=== PATIENT | female | born 2000 | race Caucasian/White ===

== ENCOUNTER 2019-10-08 17:09 | Emergency (ER) | payer OTHER ==
[~2019-10-08] VITALS: Ht 160 cm; Wt 49.5 kg
[2019-10-08 17:14] VITALS: BP 112/74
[2019-10-08] MEDS ORDERED: KETOROLAC 30 MG/ML VIAL IM ONE (17:25)
--- NOTE | 2019-10-08 17:38 | NUR ---
TORADOL HELD DUE TO + HCG, ABILIO SOUSA NOTIFIED
--- NOTE | 2019-10-08 17:40 | NUR ---
C/O R FLANK PAIN AND DYSURIA OFF & ON X1 MONTH. DENIES VAGINAL D/C, ODOR, BLEEDING ETC. DENIES FEVER, ABD PAIN.
[2019-10-08 17:56] VITALS: BP 112/74
[2019-10-08 18:29] LABS: APPEARANCE,URINE CLEAR (CLEAR); BILIRUBIN,URINE NEGATIVE (NEGATIVE); BLOOD, URINE NEGATIVE (NEGATIVE); LEUKOCYTE ESTERASE ,URINE NEGATIVE (NEGATIVE); NITRITE, URINE NEGATIVE (NEGATIVE); UGLUCOSE NEGATIVE (NEGATIVE)
[2019-10-08 21:11] LABS: COLOR,URINE STRAW (YELLOW)
== END 2019-10-08 17:57 | disposition home or self-care (01) ==
LOC: MED 17:09
DX: M54.5 Low back pain (principal); R30.0 Dysuria; R35.0 Frequency of micturition
CPT/HCPCS: 81003; 81025; 87086; 99283; J1885

== ENCOUNTER 2021-07-24 11:08 | Observation (INO) | payer OTHER ==
[~2021-07-24] VITALS: Ht 157.5 cm; Wt 51.3 kg
[2021-07-24 11:14] VITALS: BP 110/70
[2021-07-24] MEDS ORDERED: NACL 0.9% 1,000 ML IV ONE ×2 (12:40)
[2021-07-24] MEDS ORDERED: KETOROLAC 30 MG/ML VIAL IVP ONE (12:40)
[2021-07-24] MEDS ORDERED: ACETAMINOPHEN EXTRA STRENGTH 500 MG TAB PO ONE (12:40)
[2021-07-24 13:42] LABS: BASOPHILS % (AUTO) 0.2 % (0.0-2.0); EOSINOPHILS % (AUTO) 0.2 % (0.0-4.0); HEMATOCRIT 36.8 % (36-48); HEMOGLOBIN 12.2 g/dL (12.0-16.0); LYMPHOCYTES # (AUTO) 1.1 K/uL (2.5-16.5); LYMPHOCYTES % (AUTO) 9.1 % (20.5-51.1); MEAN CORPUSCULAR HEMOGLOBIN 30 pg (27-31); MEAN CORPUSCULAR HGB CONC 33 g/dL (33-37); MONOCYTES # (AUTO) 0.8 K/uL (0.8-1.0); MONOCYTES % (AUTO) 6.3 % (1.7-9.3); NEUTROPHILS # (AUTO) 10.1 K/uL (1.8-7.7); NEUTROPHILS % (AUTO) 84.2 % (42.2-75.2); PLATELET COUNT (AUTO) 354 K/uL (140-450); RED BLOOD CELL COUNT(AUTO) 4.13 MIL/uL (4.20-5.40); RED CELL DISTRIBUTION WIDTH 13.5 % (11.6-13.7)
[2021-07-24 14:15] LABS: ANION GAP 12.5 (8-16); CARBON DIOXIDE 24.2 mmol/L (21-32); CREATININE 0.7 mg/dL (0.6-1.3); POTASSIUM 3.7 mmol/L (3.5-5.1); TOTAL BILIRUBIN 0.4 mg/dL (0.0-1.0)
[2021-07-24] MEDS ORDERED: KETOROLAC 30 MG/ML VIAL ONE (14:50)
[2021-07-24] MEDS ORDERED: cefTRIAXone 1,000 MG VIAL ONE (14:52)
[2021-07-24 16:23] LABS: APPEARANCE,URINE CLEAR (CLEAR); BILIRUBIN,URINE NEGATIVE (NEGATIVE); BLOOD, URINE 3+ (NEGATIVE); COLOR,URINE YELLOW (YELLOW); LEUKOCYTE ESTERASE ,URINE NEGATIVE (NEGATIVE); NITRITE, URINE NEGATIVE (NEGATIVE); UGLUCOSE NEGATIVE (NEGATIVE)
[2021-07-24 16:27] LABS: WBC,URINE 0-5 /HPF (0-5)
[2021-07-24] MEDS ORDERED: MORPHINE SULFATE 2 MG/ML SYR IVP PRN (16:35)
[2021-07-24] MEDS ORDERED: ONDANSETRON 4 MG/2 ML VIAL IVP PRN (16:35)
[2021-07-24] MEDS: NACL 0.9% 1,000 ML IV SCH ×2 (17:00→17:01)
[2021-07-24] MEDS: ACETAMINOPHEN 325 MG TAB PO PRN (22:50)
[2021-07-25] MEDS: NACL 0.9% 1,000 ML IV SCH ×2 (01:27→10:07)
[2021-07-25] MEDS: ACETAMINOPHEN 325 MG TAB PO PRN (06:57)
[2021-07-25 08:00] VITALS: BP 102/60
[2021-07-25 08:40] LABS: BASOPHILS # (AUTO) 0.1 K/uL (0.00-0.22); BASOPHILS % (AUTO) 0.8 % (0.0-2.0); EOSINOPHILS # (AUTO) 0.1 K/uL (0-0.4); EOSINOPHILS % (AUTO) 0.7 % (0.0-4.0); HEMATOCRIT 31.2 % (36-48); HEMOGLOBIN 10.4 g/dL (12.0-16.0); LYMPHOCYTES # (AUTO) 2.1 K/uL (2.5-16.5); LYMPHOCYTES % (AUTO) 19.1 % (20.5-51.1); MEAN CORPUSCULAR HEMOGLOBIN 30 pg (27-31); MEAN CORPUSCULAR HGB CONC 33 g/dL (33-37); MEAN CORPUSCULAR VOLUME 90.1 fL (80-94); MONOCYTES # (AUTO) 1.1 K/uL (0.8-1.0); MONOCYTES % (AUTO) 9.7 % (1.7-9.3); NEUTROPHILS # (AUTO) 7.6 K/uL (1.8-7.7); NEUTROPHILS % (AUTO) 69.7 % (42.2-75.2); PLATELET COUNT (AUTO) 318 K/uL (140-450); RED BLOOD CELL COUNT(AUTO) 3.46 MIL/uL (4.20-5.40); RED CELL DISTRIBUTION WIDTH 13.6 % (11.6-13.7)
[2021-07-25 08:49] LABS: ANION GAP 14.7 (8-16); CARBON DIOXIDE 20.5 mmol/L (21-32); CREATININE 0.5 mg/dL (0.6-1.3); MAGNESIUM 2.2 mg/dL (1.8-2.4); PHOSPHORUS 2.6 mg/dL (2.5-4.9); POTASSIUM 4.2 mmol/L (3.5-5.1); TOTAL BILIRUBIN 0.3 mg/dL (0.0-1.0)
[2021-07-25 12:00] VITALS: BP 106/58
[2021-07-25 13:42] LABS: WHITE BLOOD COUNT (AUTO) 11.9 K/uL (4.8-10.8)
[2021-07-25 14:21] VITALS: BP 106/58
== END 2021-07-25 15:15 | disposition home or self-care (01) ==
LOC: MED 11:08 → MMU 16:38 → MTU 07-25 06:41
PROVIDERS: ADMIT Hospitalist; ATTEND Hospitalist
DX: R10.9 Unspecified abdominal pain (principal); Z20.822 Contact with and (suspected) exposure to COVID-19; N13.4 Hydroureter; N26.1 Atrophy of kidney (terminal); R30.0 Dysuria; N12 Tubulo-interstitial nephritis, not specified as acute or chronic
CPT/HCPCS: 36415; 74176; 80053; 81001; 83605; 83690; 83735; 84100; 85025; 87040; 87086; 87426; 96361; 96365; 96375; 99285; G0378; J0696; J1885; J2270; J7030